=== PATIENT | male | born 1975 | race Caucasian/White ===

== ENCOUNTER 2024-03-08 17:11 | Emergency (ER) | payer OTHER, SELFPAY ==
[2024-03-08 17:15] VITALS: BP 109/71
[2024-03-08 17:28] LABS: % Basophils 0.3 % (0-2); % Eosinophils 0.8 % (0-6); % Immature Granulocytes 0.3 % (0-0.5); % Lymphocytes 14.8 % (20.5-51.1); % Neutrophils 76.8 % (42.2-75.2); Absolute Eosinophils 0.1 10^3/uL (0-0.7); Absolute Monocytes 0.5 10^3/uL (0.1-0.6); Hematocrit 38.8 % (39.0-52.0); Hemoglobin 13.5 g/dL (13.0-18.0); Mean Corp Hgb Conc. 34.8 g/dL (33.0-37.0); Mean Corpuscular Hgb 28.8 pg (27.0-31.0); Mean Corpuscular Volume 82.7 fL (80.0-94.0); Mean Platelet Volume 8.8 fL (7.4-10.4); Nucleated Red Blood Cells % 0 % (-); Platelet Count 195 10^3/uL (130-400); Red Blood Cell Count 4.69 10^6/uL (4.70-6.10); Red Cell Dist. Width 13.6 % (11.5-14.5); White Blood Cell Count 6.6 10^3/uL (4.8-10.8)
[2024-03-08 17:48] LABS: ALT (SGPT) 19 U/L (0-50); AST (SGOT) 24 U/L (17-59); Albumin 3.9 g/dl (3.5-5.0); Alkaline Phosphatase 93 U/L (38-126); Blood Urea Nitrogen 15 mg/dl (9-20); Calcium 8.7 mg/dl (8.4-10.2); Carbon Dioxide 24 mmol/L (22-30); Chloride 104 mmol/L (98-107); Glucose 108 mg/dl (70-99); Potassium 4.1 mmol/L (3.5-5.1); Sodium 132 mmol/L (135-145); Total Bilirubin 0.8 mg/dl (0.2-1.3); Total Protein 6.9 g/dl (6.3-8.2); eGFR > 60.00
--- NOTE | 2024-03-08 17:48 | ED.GENMED ---
History of Present Illness
General
Chief Complaint: Chest Pain
Time Seen by Provider: 03/08/24 17:19
Travel History
Have you had any contact with someone who has COVID-19?: No
Do you have any symptoms of coronavirus? Fever > 100 degrees, chills, cough, shortness of breath, sore throat, loss of taste or smell, muscle aches, or headache?: No
History of Present Illness
History of Present Illness:
Patient presents to the emergency department with chest pain. Patient is currently incarcerated. Has a hx of opioid abuse. He is somnolent although arousable and only provides limited history. He was given nitroglycerin and route which
reportedly dropped his blood pressure.
Past History
Past History
ED Past Medical History: Arrthythmia (Atrial fibrillation), GERD and Psychiatric
ED Past Surgical History: None
Social History
Tobacco: Smoker
Alcohol: Occasional
Drug: Cocaine and Narcotics
Personal: Single
Living: with family
Family History
Family History: Other (Reviewed and noncontributory)
Phy Exam
Physical Exam
Physical Exam:
GENERAL APPEARANCE: somnolent, arousable to voice, AOx3, disheveled
EYES lids/conjunctiva normal, pinpoint pupils
EARS/NOSE/THROAT Mucous membranes moist, uvula midline without oral pharyngeal erythema, exudate or swelling
HEAD/NECK normocephalic atraumatic, neck is supple.
RESPIRATORY respiratory effort normal, speaks in full sentences, no accessory muscle use. Lungs clear to auscultation without rhonchi, wheezes, rales
CARDIAC Regular rate and rhythm, no edema.
ABDOMINAL Soft, ND/NT. No pulsatile masses on exam, rebound tenderness, Dooley sign or pain over Mcburney's point.
MUSCLES/EXTREMITIES No abnormal range of motion, no swelling.
SKIN Warm, pink and dry. No rashes
NEUROLOGICAL slurred speech, drowsy
Scores
Heart Score for Chest Pain Patients
STEMI patient?: No
History: Slightly or Non-Suspicious
ECG: Nonspecific Repolarization
Age: >45 - <65 years
Risk Factors: No Risk Factors
Troponin: </= Normal Limit
Heart Score for Chest Pain Patients: 2
Heart Score Risk: 2.5% MACE over next 6 weeks
Course
Orders/Labs/Results
Orders:
Orders
03/08/24 17:18
Electrocardiogram (*1) Urgent
Reason for Study: Chest Pain
EKG- Treatment ONCE
Cr Chest Portable [CR Chest Portable - 1 View] Urgent
Comment:
Reason For Exam: chest pain
Reason Study Needs to be Portable: Unable to Transport
03/08/24 17:23
Acetaminophen Urgent
Alcohol Urgent
Complete Blood Count/With Diff Urgent
Comprehensive Metabolic Panel Urgent
Salicylate Urgent
Troponin I Urgent
03/08/24 17:51
0.9% Sodium Chloride 1000 ml [Nss] 1,000 ml IV BOLUS
Pulse Ox/cont/shift [RESP] Stat
Quantity: 1
03/08/24 17:55
Add On- LAB Urgent
Tests Added?: alcohol, tylenol, salicylate
03/08/24 18:16
Fentanyl, Urine Urgent
Urine Drug Abuse Screen Urgent
Date Specimen was Collected: 03/08/24
Time Specimen was Collected: 17:52
Abnormal Lab Results
03/08/24 03/08/24
17:23 18:16
RBC 4.69 L 10^6/uL
(4.70-6.10)
Hct 38.8 L %
(39.0-52.0)
Absolute Lymphs (auto) 1.0 L 10^3/uL
(1.2-3.4)
Neutrophils % 76.8 H %
(42.2-75.2)
Lymphocytes % 14.8 L %
(20.5-51.1)
Sodium 132 L mmol/L
(135-145)
Glucose 108 H mg/dl
(70-99)
Salicylates 1.2 L mg/dl
(2.0-20.0)
Urine Opiates Screen Positive H
(Negative)
Urine Methadone Screen Positive H
(Negative)
Acetaminophen < 10 L ug/ml
(10-30)
Urine Cocaine Screen Positive H
(Negative)
03/08/24 17:23
03/08/24 17:23
Vital Signs
Initial and Last Documented VS:
Initial Vital Signs
Temp Pulse Resp BP Pulse Ox
98.4 F 89 18 109/71 93
03/08/24 17:15 03/08/24 17:15 03/08/24 17:15 03/08/24 17:15 03/08/24 17:15
Last Documented Vital Signs
Temp Pulse Resp BP Pulse Ox
98.4 F 73 12 129/84 97
03/08/24 17:15 03/08/24 20:15 03/08/24 20:15 03/08/24 20:00 03/08/24 19:45
*Critical Care Note
Total Time (30-74mins, 75-104mins- exclusive of procedures): Not Applicable
ED Attending Note
ED Attending Note
ED Attending Note:
Patient with atypical chest pain. No acute ischemia on EKG. Troponin negative. Low risk by heart score. Primary issue seems to be his sedation which is explained by opioids and methadone that are in his urine. Patient was observed in the
emergency department with a return to normal mental status. At that point he was hemodynamically stable and denied any chest pain will discharge back to skilled nursing
-
Portions of this chart may have been created with voice recognition software.� Occasional wrong word or��sound alike� substitutions may have occurred due to the inherent limitations of voice recognition software.
Discharge Plan
Departure
Patient Disposition: Custodial
Date of Disposition: 03/08/24
Time of Disposition: 20:26
Discharge Problem:
Opioid intoxication, Chest pain
Instructions: Opioid Overdose, Chest Pain
Prescriptions:
No Action
clonidine HCl 0.1 mg Tablet
0.1 mg PO .TAPER
Patient Comments:
03/08/2024: Taper Directions 0.1mg TID from 03/07-03/10, 0.1mg BID from 03/11-03/12, 0.05mg BID from 03/13-03/14
ondansetron HCl 2 mg/mL Solution
4 mg IM TID PRN (Reason: if po ineffective)
ondansetron HCl 4 mg Tablet
4 mg PO TID PRN (Reason: nausea/vomiting)
loperamide [Anti-Diarrhea] 2 mg Tablet
2 mg PO TID PRN (Reason: diarrhea)
acetaminophen-codeine 300-30 mg Tablet
1 tab PO .TAPER
Patient Comments:
03/08/2024: Taper Directions: 2 tabs TID from 03/07-03/09, 2 tab BID from 03/10-03/11, 1 tab BID from 03/12-03/13, 1 tab HS from 03/14-03/14
Referrals:
[facility] [Family Provider] -
Interventions
Interventions:
*Risk Screen - Suicide Last Done: 03/08/24 17:15
*General Assessment Last Done: 03/08/24 17:15
*Neglect/Abuse Screening Last Done: 03/08/24 17:15
ED- Fall Risk Assessment Last Done: 03/08/24 17:28
*Nursing Disposition Last Done: 03/08/24 20:35
ED- Cardiac Assessment Last Done: 03/08/24 17:28
Discharge Date and Time
Discharge Date/Time: 03/08/24 20:37
Print Language: MALAY
[2024-03-08 17:52] LABS: Troponin I < 0.012 ng/ml
[2024-03-08 18:00] VITALS: BP 142/89
[2024-03-08] MEDS: NSS 1000 IV (18:01)
[2024-03-08 18:11] LABS: Acetaminophen < 10 ug/ml (10-30); Salicylate 1.2 mg/dl (2.0-20.0)
[2024-03-08 18:12] LABS: Alcohol None Detected
[2024-03-08 18:19] VITALS: BP 161/87
[2024-03-08 18:45] LABS: Amphetamines Negative (Negative); Barbiturates Negative (Negative); Benzodiazepines Negative (Negative); Buprenorphine Negative (Negative); Cocaine Positive (Negative); Marijuana Negative (Negative); Opiates Positive (Negative); Phencyclidine Negative (Negative); Tricyclic Antidepressants Negative (Negative)
[2024-03-08 18:46] LABS: Methadone Positive (Negative); Methamphetamines Negative (Negative)
[2024-03-08 18:58] LABS: Fentanyl, Urine Negative (Negative)
[2024-03-08 19:00] VITALS: BP 108/69
[2024-03-08 20:00] VITALS: BP 129/84
== END 2024-03-08 20:37 ==
LOC: EMR 17:11
PROVIDERS: Physician Assistant; EMERGENCY PHYSICIAN Emergency Medicine
DX: R07.9 Chest pain, unspecified (principal); R40.0 Somnolence; F11.129 Opioid abuse with intoxication, unspecified; F17.200 Nicotine dependence, unspecified, uncomplicated
CPT/HCPCS: 99285; 96360; 71045; 80053; 80143; 80179; 80306; 80307; 82077; 84484; 85025; 93005

== ENCOUNTER 2024-04-28 06:19 | Outpatient (RCR) | payer OTHER, SELFPAY | END 2024-04-28 23:59 | disposition home or self-care (01) | LOC: RPT 06:19 | PROVIDERS: ATTENDING PHYSICIAN Nurse Practitioner Adult Health; FAMILY PHYSICIAN General Practice | DX: M54.51 Vertebrogenic low back pain (principal); Z73.6 Limitation of activities due to disability | CPT/HCPCS: 97110; 97161 ==